=== PATIENT | male | born 1950 | race Caucasian/White ===

== ENCOUNTER 2023-08-26 10:13 | Emergency (ER) | payer MEDICARE, SELFPAY ==
[2023-08-26 10:27] VITALS: BP 178/86; PULSE 56; RESP 18; TEMP 36.3; O2SAT 100; BMI 32.5
--- NOTE | 2023-08-26 11:12 | ED_ITS ---
HPI - Wound/Laceration <AMBER Rose Last Filed: 08/26/23 11:48> General Chief Complaint: Wound/Laceration Stated Complaint: Lacerated L Thumb Time Seen by Provider: 08/26/23 11:12 Source: patient Mode of arrival: Ambulatory History of Present Illness HPI narrative: This is a 73-year-old male presents emergency department due to a left thumb laceration. He cut himself on a dirty knife yesterday about 12 hours ago, was able to control the bleeding but hit it against something today causing it to bleed again. He denies any changes in range of motion in his thumb otherwise. Tetanus is up-to-date. Related Data Previous Rx's Medication Instructions Recorded cephalexin 500 mg capsule 500 mg PO QID #20 caps 08/26/23 Allergies Allergy/AdvReac Type Severity Reaction Status Date / Time No Known Drug Allergies Allergy Verified 08/26/23 10:27 Review of Systems <AMBER Rose Last Filed: 08/26/23 11:48> Review of Systems Narrative: GENERAL: Denies chills, fatigue, malaise, fever, sweats. HEENT: Denies sinus pain, ear pain, sore throat, difficulty swallowing, dizziness. RESPIRATORY: Denies dyspnea, cough, wheezing, hemoptysis, sputum. CARDIOVASCULAR: Denies chest pain, palpitations, orthopnea, edema, GASTROINTESTINAL: Denies nausea, vomiting, abdominal pain, diarrhea, constipation, melena. : Denies dysuria, frequency, incontinence, hematuria, urinary retention. MUSCULOSKELETAL: denies weakness, joint pain, or bony pain SKIN: Left thumb laceration otherwise Denies rash, skin lesions, or other NEUROLOGIC: Denies weakness, headache, numbness, change in speech, confusion, seizures, incoordination. PSYCHIATRIC: No concerning psychosocial issues. 12 point review of systems is negative except for those stated above Patient History <AMBER Rose Last Filed: 08/26/23 11:48> Social History Smoking Status: Never smoker Smoking Status: Never smoker alcohol intake frequency: other Substance Use Type: does not use Exam <AMBER Rose Last Filed: 08/26/23 11:48> Narrative Exam Narrative: GENERAL: Well-developed patient, in mild distress. HEAD: Atraumatic. Normocephalic. EYES: Pupils equal round and reactive. Extraocular motions intact. No scleral icterus. No injection or drainage. ENT: Nose without bleeding, purulent drainage. Throat without erythema, tonsillar hypertrophy or exudate. Airway patent. NECK: Trachea midline. Non tender EXTREMITIES: No edema or joint tenderness. NEURO: AOx3. SKIN: 2 cm laceration to the medial aspect of the left thumb. No changes in flexion-extension at the interphalangeal joint, minimal oozing bleeding Initial Vital Signs Initial Vital Signs: Vital Signs Temperature 97.4 F L 08/26/23 10:27 Pulse Rate 56 L 08/26/23 10:27 Respiratory Rate 18 08/26/23 10:27 Blood Pressure 178/86 H 08/26/23 10:27 Pulse Oximetry 100 08/26/23 10:27 Oxygen Delivery Method Room Air 08/26/23 10:27 <Davy Huff DO - Last Filed: 08/26/23 12:07> Initial Vital Signs Initial Vital Signs: Vital Signs Temperature 97.4 F L 08/26/23 10:27 Pulse Rate 56 L 08/26/23 10:27 Respiratory Rate 18 08/26/23 10:27 Blood Pressure 178/86 H 08/26/23 10:27 Pulse Oximetry 100 08/26/23 10:27 Oxygen Delivery Method Room Air 08/26/23 10:27 Procedures <Bennett Candelaria PA-C - Last Filed: 08/26/23 11:48> Laceration Repair Laceration 1: Time of procedure: 11:18 Site: other (Left thumb) Size (cm): 2 Description: linear Depth: simple, single layer Local Anesthetic: lidocaine 1% Amount of anesthesia used (mL): 4 Pre-repair: irrigated extensively Skin layer closed with: nylon Skin layer suture size: 5-0 Number of sutures: 4 Technique: simple, interrupted Course <AMBER Rose Last Filed: 08/26/23 11:48> Orders Ordered: Discontinued Medications Lidocaine HCl (Lidocaine 1% 20 Ml) 20 ml INJ INTRA-OP ONE Stop: 08/26/23 11:17 Vital Signs Vital signs: Vital Signs - 8 hr 08/26/23 10:27 08/26/23 12:00 Temperature 97.4 F L 98.6 F Pulse Rate 56 L 66 Respiratory Rate 18 20 Blood Pressure 178/86 H 180/86 H Pulse Oximetry 100 99 Oxygen Delivery Method Room Air Room Air <Davy Huff DO - Last Filed: 08/26/23 12:07> Orders Ordered: Discontinued Medications Lidocaine HCl (Lidocaine 1% 20 Ml) 20 ml INJ INTRA-OP ONE Stop: 08/26/23 11:17 Vital Signs Vital signs: Vital Signs - 8 hr 08/26/23 10:27 08/26/23 12:00 Temperature 97.4 F L 98.6 F Pulse Rate 56 L 66 Respiratory Rate 18 20 Blood Pressure 178/86 H 180/86 H Pulse Oximetry 100 99 Oxygen Delivery Method Room Air Room Air MDM - Wound/Laceration <Bennett Candelaria PA-C - Last Filed: 08/26/23 11:48> [facility] Narrative Medical decision making narrative: ED course: This is a 73-year-old male presents emergency department due to left thumb laceration. Laceration was closed without complications. We will prescribe Keflex for antibiotic prophylaxis as he states that the knife was quite dirty. No surrounding bony tenderness that would be concerning for any kind of fracture and no changes and flexion-extension at the interphalangeal joint concerning for any kind of tendon injury. CC: Left thumb laceration Complicating co-morbidities: None Data collected from: Previous notes Medical records reviewed: Patient was not been to this emergency the in the past Differential considered, but not limited to: Soft tissue laceration, fracture, tendon injury Exam documented above, pertinent findings include: No changes in flexion- extension at the interphalangeal joint Lab Test results independently reviewed as above. Pertinent findings: None obtained Imaging studies independently reviewed: None obtained Scores Used: None MIPS Elements: None Consultations: None Treatments: Laceration repair Re-evaluations: None Discussion: Discussed plan with the patient was comfortable with the plan Diagnosis: Left thumb laceration Disposition: see below, along with detailed discharge instructions that have been reviewed with patient as well as indications for ED re-evaluation and additional outpatient follow up Discharge Plan Departure Patient Disposition: Home Clinical Impression: Laceration Instructions: DI for Laceration Repair Activity Restrictions/Additional Instructions: Thank you for coming to the [facility] Emergency Department today. I am glad that we are able to close the laceration. Please take the antibiotics to avoid any kind of infection. You may follow up with the primary care provider or the walk-in clinic for suture removal in 7-10 days. I sent the medication to [facility] in [place]. Please return to the emergency department if you develop any redness coming from the wound, purulent drainage, or any other concerning signs or symptoms. I hope you feel better soon. Please follow up with your primary care provider within a week if your symptoms continue. If you do not have a primary care provider please contact the [facility] Resource line at [phone]. They will ask some questions about your medical history and help you get set up with a provider in the community. Prescriptions: New cephalexin 500 mg capsule 500 mg PO QID Qty: 20 0RF Stand Alone Forms: Patient Portal/API ED Sign-out <Davy Huff, DO - Last Filed: 08/26/23 12:07> Cosign ED Attending Cosgualbertoature Attestation: Dr Huff Co-Sign Statement: I was available for consultation during this patient's emergency department visit. This chart is signed by myself for administrative purposes only. I did not have direct contact with this patient during this visit. They were seen independently by the APC.
[2023-08-26 12:00] VITALS: BP 180/86; PULSE 66; RESP 20; TEMP 37; O2SAT 99
== END 2023-08-26 12:02 | disposition home or self-care (01) ==
PROVIDERS: Emergency Provider Physician Assistant Medical
DX: S61.012A Laceration without foreign body of left thumb without damage to nail, initial encounter (principal); W26.0XXA Contact with knife, initial encounter
CPT/HCPCS: 12001; 99282; 99283

== ENCOUNTER 2023-10-05 05:02 | Emergency (ER) | payer MEDICARE, SELFPAY ==
[2023-10-05 05:10] VITALS: BP 190/99; PULSE 54; RESP 18; TEMP 36.1; O2SAT 100; BMI 32.5
--- NOTE | 2023-10-05 05:15 | ED_ITS ---
HPI - Animal Bite General Chief Complaint: Animal Bite Stated Complaint: cat bite left hand finger Time Seen by Provider: 10/05/23 05:09 Source: patient Mode of arrival: Ambulatory History of Present Illness HPI narrative: 73-year-old gentleman and town for a [employer] notes that he has a cat bite to his left 1st finger minor scratch to the dorsum of the hand and a smaller scratched the thumb. He was playing with his own cat when he sustained the bite. He states he has continued to wash the wounds well but this evening was awakened from sleep because of throbbing pain in his index finger on the left side associated with the cat bite. There is slight increased erythema in the area without lymphangitic streaking. He denies any fevers Related Data Previous Rx's Medication Instructions Recorded cephalexin 500 mg capsule 500 mg PO QID #20 caps 08/26/23 amoxicillin 875 mg-potassium 1 tab PO BID #20 tabs 10/05/23 clavulanate 125 mg tablet Allergies Allergy/AdvReac Type Severity Reaction Status Date / Time No Known Drug Allergies Allergy Verified 08/26/23 10:27 Review of Systems Review of Systems Narrative: Pertinent positive and negative findings as per HPI Patient History Social History Smoking Status: Never smoker Smoking Status: Never smoker alcohol intake frequency: other Substance Use Type: does not use Exam Initial Vital Signs Initial Vital Signs: Vital Signs Temperature 97 F L 10/05/23 05:10 Pulse Rate 54 L 10/05/23 05:10 Respiratory Rate 18 10/05/23 05:10 Blood Pressure 190/99 H 10/05/23 05:10 Pulse Oximetry 100 10/05/23 05:10 Oxygen Delivery Method Room Air 10/05/23 05:10 General: Alert appropriate in no acute distress Respiratory: Able to speak in full sentences, no obvious respiratory distress Skin: Minor cat bite to his left index finger, scratches to the dorsum of the hand and the thumb. No lymphangitic streaking. Neurologic: Grossly intact no obvious asymmetries or abnormalities Psych: appropriate insight and affect, cooperative Course Vital Signs Vital signs: Vital Signs - 8 hr 10/05/23 05:10 Temperature 97 F L Pulse Rate 54 L Respiratory Rate 18 Blood Pressure 190/99 H Pulse Oximetry 100 Oxygen Delivery Method Room Air MDM - Animal Bite MDM Narrative Medical decision making narrative: 73-year-old gentleman with a cat bite to the left index finger now approximately 24 hours old. It was his own cat that bit him while playing. He has been washing it well but noticed that a dull aching pain was significant enough that it woke him from sleep early this morning. He is in town visiting for [employer]. Comes in for further evaluation. There does appear to be erythema without significant drainage lymphangitic streaking appreciated. Wound is dressed with bacitracin and a Band-Aid. He is started on Augmentin. Discussed signs and symptoms of worsening infection and reasons to return to the emergency department. There was no evidence of sepsis, deep tissue infection, joint involvement or other complications that would require lab work, imaging or hospitalization at this time. Questions answered and he is safe for discharge Discharge Plan Departure Patient Disposition: Home Clinical Impression: Cat bite Qualifiers: Encounter type: initial encounter Qualified Code(s): W55.01XA - Bitten by cat, initial encounter Instructions: DI for Cat Bite Activity Restrictions/Additional Instructions: Thank you for coming in today Cat bites do tend to get infected. I am glad that you came in for further evaluation before this became worse. The bite to your index finger on the left side is beginning to become infected but does not yet appear to have developed an abscess, I am not concerned for deeper infection in the finger and your sh owing no signs of overwhelming infection or sepsis. Please use antibiotic ointment and a Band-Aid over the wound I have given you an initial dose of Augmentin in the emergency department. A prescription was electronically transmitted to [facility] here in [place]. If you feel that you are getting worse or develop new symptoms please return to the emergency department. Good luck with the [employer]! Prescriptions: New amoxicillin-pot clavulanate 875-125 mg tablet 1 tab PO BID Qty: 20 0RF No Action cephalexin 500 mg capsule 500 mg PO QID Qty: 20 0RF Stand Alone Forms: Patient Portal/API
[2023-10-05] MEDS: AMOXICILLIN/CLAV 875/125 MG 1 TAB PO (05:26)
[2023-10-05] MEDS: BACITRACIN OINT 0.9 GM PCKT 5 APPLIC TOP (05:27)
[2023-10-05 05:34] VITALS: BP 154/87; PULSE 55; RESP 19; O2SAT 100
== END 2023-10-05 05:35 | disposition home or self-care (01) ==
PROVIDERS: Emergency Provider Emergency Medicine
DX: S61.052A Open bite of left thumb without damage to nail, initial encounter (principal); S60.512A Abrasion of left hand, initial encounter; W55.01XA Bitten by cat, initial encounter
CPT/HCPCS: 99283